=== PATIENT | female | born 1955 | race Hispanic/Latino ===

== ENCOUNTER 2022-08-20 13:59 | Inpatient (IN) | payer BC ==
[~2022-08-20] VITALS: Ht 165.1 cm; Wt 57.2 kg
[2022-08-20 15:57] LABS: BASOPHILS % (AUTO) 0.3 % (0.0-5.0); EOSINOPHILS % (AUTO) 0.8 % (0.0-8.0); HEMATOCRIT 29.6 % (36-48); LYMPHOCYTES % (AUTO) 23.5 % (21.0-51.0); MEAN CORPUSCULAR HEMOGLOBIN 30.1 pg (27.0-33.0); MEAN CORPUSCULAR HGB CONC 34.1 g/dL (32.0-36.0); MEAN CORPUSCULAR VOLUME 88.4 fL (79-99); MONOCYTES % (AUTO) 8.4 % (3.0-13.0); NEUTROPHILS % (AUTO) 62.2 % (40.0-77.0); PLATELET COUNT (AUTO) 263 K/uL (130-400); RED BLOOD CELL COUNT(AUTO) 3.35 MIL/uL (4.00-5.50); RED CELL DISTRIBUTION WIDTH 11.4 % (11.0-15.5); WHITE BLOOD COUNT (AUTO) 7.1 K/uL (4.8-10.8)
[2022-08-20] MEDS ORDERED: LORAZEPAM 1 MG TABLET PO ONE (16:00)
[2022-08-20 16:11] LABS: APPEARANCE,URINE CLEAR (CLEAR); BILIRUBIN,URINE NEGATIVE (NEGATIVE); COLOR,URINE LIGHT-YELLOW (YELLOW); GLUCOSE, URINE (UA) NEGATIVE (NEGATIVE); KETONES,URINE NEGATIVE (NEGATIVE); LEUKOCYTE ESTERASE ,URINE 25 Leu/uL (NEGATIVE); NITRATE,URINE NEGATIVE (NEGATIVE); OCCULT BLOOD,URINE NEGATIVE (NEGATIVE); PH,URINE 5.5 (5.0-8.0); PROTEIN,URINE 10 mg/dL (NEGATIVE); UROBILINOGEN,URINE 0.2 mg/dL (0.2-1.0)
[2022-08-20 16:13] LABS: ALBUMIN 3.8 g/dL (3.5-5.0); TOTAL PROTEIN, SERUM 7.7 g/dL (6.0-8.3)
[2022-08-20 16:15] LABS: POTASSIUM 2.9 mmol/L (3.5-5.1)
[2022-08-20 16:20] LABS: MUCUS,URINE RARE LPF (None Seen); SQUAMOUS EPITHELIAL CELL,UR RARE /HPF (0-2)
[2022-08-20] MEDS ORDERED: POTASSIUM BICARB/CIT AC 25 MEQ TABLET.EFF PO ONE (16:30)
[2022-08-20] MEDS ORDERED: 0.9%NACL 1000ML 1,000 ML IV ONE (16:30)
[2022-08-20] MEDS ORDERED: MORPHINE 4 MG SYG IVP ONE (17:30)
[2022-08-20] MEDS ORDERED: ONDANSETRON 4MG INJ IVP ONE (17:30)
[2022-08-20] MEDS ORDERED: ZOLPIDEM TARTRATE 5 MG TAB PO PRN (19:30)
[2022-08-20] MEDS ORDERED: ONDANSETRON 4MG INJ IV PRN (19:30)
[2022-08-20] MEDS: 0.9%NACL 1000ML 1,000 ML IV SCH (20:56)
[2022-08-20] MEDS ORDERED: LISI1TAB49 PO (22:22)
[2022-08-20] MEDS ORDERED: SIMV5TAB58 PO (22:22)
[2022-08-20] MEDS ORDERED: METF-444 PO (22:22)
[2022-08-20 22:49] VITALS: BP 170/86
[2022-08-20 22:51] VITALS: BP 129/71
[2022-08-21] VITALS: BP 129/71
[2022-08-21 04:00] VITALS: BP 97/59
[2022-08-21] MEDS: 0.9%NACL 1000ML 1,000 ML IV SCH ×2 (05:30→07:53)
[2022-08-21] MEDS: INSULIN HUMULIN R 100 UNIT/ML 3ML SQ SCH ×4 (05:33→20:30)
[2022-08-21 05:35] LABS: BASOPHILS % (AUTO) 0.3 % (0.0-5.0); HEMATOCRIT 26.2 % (36-48); LYMPHOCYTES % (AUTO) 32.1 % (21.0-51.0); MEAN CORPUSCULAR HEMOGLOBIN 29.6 pg (27.0-33.0); MEAN CORPUSCULAR HGB CONC 33.2 g/dL (32.0-36.0); MEAN CORPUSCULAR VOLUME 89.1 fL (79-99); MONOCYTES % (AUTO) 9.1 % (3.0-13.0); NEUTROPHILS % (AUTO) 52.9 % (40.0-77.0); PLATELET COUNT (AUTO) 233 K/uL (130-400); RED BLOOD CELL COUNT(AUTO) 2.94 MIL/uL (4.00-5.50); RED CELL DISTRIBUTION WIDTH 11.5 % (11.0-15.5); WHITE BLOOD COUNT (AUTO) 5.8 K/uL (4.8-10.8)
[2022-08-21 06:13] LABS: ALBUMIN 3.3 g/dL (3.5-5.0); CREATININE 2.1 mg/dL (0.5-1.5); POTASSIUM 3.3 mmol/L (3.5-5.1); TOTAL PROTEIN, SERUM 6.9 g/dL (6.0-8.3)
[2022-08-21 06:57] LABS: ERYTHROCYTE SEDIMENTATION RATE 85 MM/HR (0-30)
[2022-08-21] MEDS: FAMOTIDINE 20MG VIAL IV SCH (07:52)
[2022-08-21 08:00] VITALS: BP 116/65
[2022-08-21 12:00] VITALS: BP 112/64
[2022-08-21] MEDS ORDERED: KCL 20 MEQ ERTAB PO PRN (13:30)
[2022-08-21] MEDS ORDERED: PAMIDRONATE DISODIUM 90MG VIAL 60 MG in 0.9%NACL 1000ML 1,000 ML IV SCH (13:30)
[2022-08-21] MEDS: POTASSIUM CHLORIDE 10% ELIXIR 20 MEQ/15 ML UDCUP PO PRN ×2 (14:47→16:41)
[2022-08-21 16:00] VITALS: BP 125/68
[2022-08-21 19:00] VITALS: BP 122/66
[2022-08-21] MEDS: MORPHINE 2 MG SYG IV PRN (19:22)
[2022-08-22] VITALS (15 sets, daily range): BP systolic 99–164; BP diastolic 52–84
[2022-08-22] MEDS: 0.9%NACL 1000ML 1,000 ML IV SCH ×3 (01:30→19:40)
[2022-08-22 05:22] LABS: HEMATOCRIT 23.6 % (36-48); MEAN CORPUSCULAR HEMOGLOBIN 30.2 pg (27.0-33.0); MEAN CORPUSCULAR HGB CONC 33.9 g/dL (32.0-36.0); MEAN CORPUSCULAR VOLUME 89.1 fL (79-99); RED BLOOD CELL COUNT(AUTO) 2.65 MIL/uL (4.00-5.50); RED CELL DISTRIBUTION WIDTH 11.4 % (11.0-15.5); WHITE BLOOD COUNT (AUTO) 4.8 K/uL (4.8-10.8)
[2022-08-22 05:33] LABS: INR 1.06 (0.85-1.15); PROTHROMBIN TIME 11.5 SEC (9.6-11.6)
[2022-08-22] MEDS: INSULIN HUMULIN R 100 UNIT/ML 3ML SQ SCH ×4 (05:33→21:00)
[2022-08-22 05:34] LABS: PARTIAL THROMBOPLASTIN TIME 25.6 SEC (26.3-35.5)
[2022-08-22 05:41] LABS: ALBUMIN 2.9 g/dL (3.5-5.0); CREATININE 1.9 mg/dL (0.5-1.5); POTASSIUM 3.1 mmol/L (3.5-5.1); TOTAL PROTEIN, SERUM 6.1 g/dL (6.0-8.3)
[2022-08-22] MEDS: MORPHINE 2 MG SYG IV PRN ×2 (09:53→15:43)
[2022-08-22] MEDS: FAMOTIDINE 20MG VIAL IV SCH (10:37)
[2022-08-22] MEDS ORDERED: HYDROCHLOROTHIAZIDE 25 MG TABLET PO SCH (13:00)
[2022-08-22] MEDS: ACETAMINOPHEN 325 MG TAB PO PRN (17:14)
[2022-08-22] MEDS: POTASSIUM CHLORIDE 10% ELIXIR 20 MEQ/15 ML UDCUP PO PRN ×2 (19:40→22:06)
[2022-08-22] MEDS: SIMVASTATIN 10 MG TABLET PO SCH (22:04)
[2022-08-22] MEDS: LISINOPRIL 10 MG TABLET PO SCH (22:05)
[2022-08-22] MEDS: HYDROCHLOROTHIAZIDE 25 MG TABLET PO SCH (22:05)
[2022-08-23] MEDS: POTASSIUM CHLORIDE 10% ELIXIR 20 MEQ/15 ML UDCUP PO PRN ×2 (00:10→18:24)
[2022-08-23 04:00] VITALS: BP 124/67
[2022-08-23] MEDS: 0.9%NACL 1000ML 1,000 ML IV SCH ×2 (05:04→21:40)
[2022-08-23 05:36] LABS: MEAN CORPUSCULAR HEMOGLOBIN 29.6 pg (27.0-33.0); MEAN CORPUSCULAR HGB CONC 32.8 g/dL (32.0-36.0); MEAN CORPUSCULAR VOLUME 90.1 fL (79-99); PLATELET COUNT (AUTO) 123 K/uL (130-400); RED BLOOD CELL COUNT(AUTO) 2.13 MIL/uL (4.00-5.50); RED CELL DISTRIBUTION WIDTH 11.6 % (11.0-15.5)
[2022-08-23 05:41] LABS: HEMATOCRIT 19.2 % (36-48)
[2022-08-23 05:44] LABS: CREATININE 1.6 mg/dL (0.5-1.5); POTASSIUM 3.6 mmol/L (3.5-5.1)
[2022-08-23] MEDS: INSULIN HUMULIN R 100 UNIT/ML 3ML SQ SCH ×4 (06:07→21:00)
[2022-08-23 06:12] LABS: LYMPHOCYTES % (MANUAL) 16 % (22-44); MONOCYTES % (MANUAL) 12 % (2-9); SEGMENTED NEUTROPHILS % 72 % (40-70)
[2022-08-23 06:13] LABS: MAN.DIFF COMMENT-IMPRESSION MANUAL DIFFERENTIAL; PLATELET MORPHOLOGY COMMENT ADEQUATE
[2022-08-23 07:00] LABS: HEMATOCRIT 20.9 % (36-48)
[2022-08-23 07:55] VITALS: BP 113/59
[2022-08-23] MEDS: FAMOTIDINE 20MG VIAL IV SCH (07:59)
[2022-08-23] MEDS ORDERED: CLINDAMYCIN IVPB 600MG/50ML 50 ML IV SCH (09:30)
[2022-08-23 11:40] VITALS: BP 111/64
[2022-08-23] MEDS ORDERED: VANCOMYCIN PROTOCOL PER PHARMACY IV SCH (12:30)
[2022-08-23] MEDS ORDERED: VANCOMYCIN 1.25 GM/250 ML BAG 250 ML IV ONE (15:00)
[2022-08-23 15:45] VITALS: BP 149/77
[2022-08-23] MEDS: CEFTRIAXONE 1G VIAL IVP SCH (16:33)
[2022-08-23] MEDS: ACETAMINOPHEN 325 MG TAB PO PRN (18:33)
[2022-08-23 18:52] LABS: INFLUENZA TYPE A NEGATIVE FOR TYPE A (NEG); INFLUENZA TYPE B NEGATIVE FOR TYPE B (NEG)
[2022-08-23 20:31] VITALS: BP 120/70
[2022-08-23] MEDS: SIMVASTATIN 10 MG TABLET PO SCH (21:41)
[2022-08-23] MEDS: HYDROCHLOROTHIAZIDE 25 MG TABLET PO SCH (21:41)
[2022-08-23] MEDS: LISINOPRIL 10 MG TABLET PO SCH (21:41)
[2022-08-24 00:28] VITALS: BP 112/64
[2022-08-24] MEDS: 0.9%NACL 1000ML 1,000 ML IV SCH (03:30)
[2022-08-24] MEDS: ACETAMINOPHEN 325 MG TAB PO PRN ×2 (03:47→11:16)
[2022-08-24 04:35] VITALS: BP 113/64
[2022-08-24 05:04] LABS: HEMATOCRIT 24.2 % (36-48); MEAN CORPUSCULAR HEMOGLOBIN 29.5 pg (27.0-33.0); MEAN CORPUSCULAR HGB CONC 33.5 g/dL (32.0-36.0); RED BLOOD CELL COUNT(AUTO) 2.75 MIL/uL (4.00-5.50); RED CELL DISTRIBUTION WIDTH 12.1 % (11.0-15.5)
[2022-08-24 05:17] LABS: ALBUMIN 2.5 g/dL (3.5-5.0); CREATININE 1.8 mg/dL (0.5-1.5); POTASSIUM 3.7 mmol/L (3.5-5.1); TOTAL PROTEIN, SERUM 5.6 g/dL (6.0-8.3)
[2022-08-24] MEDS: INSULIN HUMULIN R 100 UNIT/ML 3ML SQ SCH ×2 (06:55→11:30)
[2022-08-24 08:00] VITALS: BP 116/62
[2022-08-24] MEDS ORDERED: LEVO-70 PO (10:13)
[2022-08-24] MEDS ORDERED: LISI10TA24 PO (10:22)
[2022-08-24 12:00] VITALS: BP 109/59
[2022-08-24] MEDS: CEFTRIAXONE 1G VIAL IVP SCH (12:54)
[2022-08-24] MEDS ORDERED: VANCOMYCIN 500MG+NS 100ML 100 ML IV SCH (15:00)
== END 2022-08-24 17:05 | disposition home or self-care (01) | DRG 598 ==
LOC: EDH 13:59 → EDHIP 14:00 → 3BH 22:00
PROVIDERS: ADMIT Hospitalist; ATTEND Hospitalist
PROC: 0HBU3ZX Excision of Left Breast, Percutaneous Approach, Diagnostic (ICD-10-PCS; 2022-08-22)
PROC: 30233N1 Transfusion of Nonautologous Red Blood Cells into Peripheral Vein, Percutaneous Approach (ICD-10-PCS; principal; 2022-08-23)
DX: C50.912 Malignant neoplasm of unspecified site of left female breast (principal); C79.51 Secondary malignant neoplasm of bone; N17.9 Acute kidney failure, unspecified; Z20.822 Contact with and (suspected) exposure to COVID-19; M54.50 Low back pain, unspecified; E83.52 Hypercalcemia; E87.6 Hypokalemia; D64.9 Anemia, unspecified; E11.22 Type 2 diabetes mellitus with diabetic chronic kidney disease; N18.9 Chronic kidney disease, unspecified; Z79.899 Other long term (current) drug therapy
CPT/HCPCS: 19083; 36415; 36430; 74176; 76641; 80048; 80053; 81001; 82310; 82948; 84145; 85014; 85018; 85025; 85027; 85610; 85651; 85730; 86140; 86300; 86304; 86316; 86850; 86900; 86901; 86923; 87040; 87088; 87426; 87804; G0378; J0696; J2270; J2405; J2430; J3490; J7030; P9016

== ENCOUNTER 2023-05-04 15:00 | Inpatient (IN) | payer MEDICARE, OTHER ==
[~2023-05-04 15:00] MED LIST: HYDR-4377 PO; LISI1TAB49 PO; METF-444 PO; METO10TA41 PO; SIMV5TAB58 PO
[2023-05-04] MEDS ORDERED: MORPHINE 2 MG SYG ONE (18:26)
[2023-05-04] MEDS ORDERED: MORPHINE 2 MG SYG IVP PRN (19:00)
[2023-05-04] MEDS ORDERED: ONDANSETRON 4MG INJ IVP PRN (19:00)
[2023-05-04] MEDS ORDERED: BISACODYL 10 MG SUPP.RECT RC PRN (19:00)
[2023-05-04] MEDS ORDERED: ACETAMINOPHEN 650 MG SUPPOSITORY RC PRN (19:00)
[2023-05-04 20:01] VITALS: O2SAT 96
[2023-05-04] MEDS: MORPHINE 2 MG SYG IVP PRN (21:07)
[2023-05-04] MEDS: LORAZEPAM 2 MG/ML 1 ML VIAL IVP PRN (22:13)
[2023-05-05] MEDS: MORPHINE 2 MG SYG IVP PRN ×6 (01:59→21:54)
[2023-05-05] MEDS: LORAZEPAM 2 MG/ML 1 ML VIAL IVP PRN ×5 (02:41→21:55)
[2023-05-05 08:00] VITALS: BP 141/69; PULSE 123; RESP 20; O2SAT 100
[2023-05-05 19:45] VITALS: O2SAT 100
[2023-05-06] MEDS: MORPHINE 2 MG SYG IVP PRN ×6 (02:08→17:57)
[2023-05-06] MEDS: LORAZEPAM 2 MG/ML 1 ML VIAL IVP PRN ×4 (02:08→17:58)
[2023-05-06 07:19] VITALS: PULSE 125; RESP 20
[2023-05-06 08:00] VITALS: O2SAT 100
[2023-05-06 11:00] VITALS: BP 113/64; PULSE 121; RESP 22
[2023-05-06 20:05] VITALS: BP 127/77; PULSE 119; RESP 15
[2023-05-06 20:10] VITALS: PULSE 113; RESP 16
[2023-05-06 20:20] VITALS: O2SAT 100
[2023-05-07] MEDS: LORAZEPAM 2 MG/ML 1 ML VIAL IVP PRN ×4 (00:08→21:48)
[2023-05-07] MEDS: MORPHINE 2 MG SYG IVP PRN ×8 (00:11→21:43)
[2023-05-07 06:39] VITALS: PULSE 120; RESP 21
[2023-05-07 07:30] VITALS: BP 127/68; PULSE 116; RESP 22
[2023-05-07] MEDS ORDERED: ACETAMINOPHEN 325 MG/10.15ML UDCUP PO PRN (14:30)
[2023-05-07 19:35] VITALS: PULSE 111; RESP 16
[2023-05-07 19:51] VITALS: BP 139/74; PULSE 115; RESP 22
[2023-05-07 20:40] VITALS: O2SAT 100
[2023-05-08] MEDS: LORAZEPAM 2 MG/ML 1 ML VIAL IVP PRN ×7 (01:04→22:34)
[2023-05-08] MEDS: MORPHINE 2 MG SYG IVP PRN ×4 (01:07→10:07)
[2023-05-08 06:37] VITALS: PULSE 100; RESP 16
[2023-05-08 07:30] VITALS: O2SAT 100
[2023-05-08 08:09] VITALS: BP 143/67; PULSE 129; RESP 16
[2023-05-08] MEDS: MORPHINE PCA 50MG/50ML NS IV SCH (11:43)
[2023-05-08 20:00] VITALS: BP 126/61; PULSE 120; RESP 18; O2SAT 100
[2023-05-08 20:10] VITALS: PULSE 100; RESP 16
[2023-05-09] MEDS: LORAZEPAM 2 MG/ML 1 ML VIAL IVP PRN ×3 (05:23→14:57)
[2023-05-09 07:30] VITALS: O2SAT 100
[2023-05-09 07:45] VITALS: PULSE 112; RESP 16
[2023-05-09 07:59] VITALS: BP 164/72; PULSE 122; RESP 14
[2023-05-09 19:45] VITALS: BP 121/58; PULSE 111; RESP 20
[2023-05-09 19:55] VITALS: PULSE 110; RESP 20
[2023-05-09 20:00] VITALS: O2SAT 100
[2023-05-10] MEDS: LORAZEPAM 2 MG/ML 1 ML VIAL IVP PRN ×3 (00:13→16:32)
[2023-05-10] MEDS: MORPHINE PCA 50MG/50ML NS IV SCH (03:52)
[2023-05-10 08:01] VITALS: O2SAT 100
[2023-05-10 08:57] VITALS: PULSE 148; RESP 20
[2023-05-10 12:00] VITALS: BP 115/58; PULSE 140; RESP 30
[2023-05-10 20:05] VITALS: O2SAT 91
[2023-05-10 20:27] VITALS: BP 98/59; PULSE 57; RESP 19
[2023-05-11] MEDS: LORAZEPAM 2 MG/ML 1 ML VIAL IVP PRN ×4 (01:57→22:13)
[2023-05-11 07:50] VITALS: O2SAT 91
[2023-05-11 12:32] VITALS: BP 132/62; PULSE 133; RESP 30
[2023-05-11 20:13] VITALS: O2SAT 99
[2023-05-11 20:58] VITALS: BP 111/55; PULSE 129; RESP 20
[2023-05-12] MEDS: LORAZEPAM 2 MG/ML 1 ML VIAL IVP PRN ×4 (01:16→10:21)
[2023-05-12 07:24] VITALS: O2SAT 99
[2023-05-12 08:38] VITALS: BP 127/62; PULSE 133; RESP 20
[2023-05-12] MEDS: MORPHINE 2 MG SYG IVP SCH ×2 (09:06→10:21)
[2023-05-12] MEDS: MORPHINE PCA 50MG/50ML NS IV SCH ×2 (10:54→10:55)
[2023-05-12] MEDS: LORAZEPAM 2 MG/ML 1 ML VIAL IVP SCH ×6 (13:15→23:04)
[2023-05-12] MEDS ORDERED: MORPHINE PCA 50MG/50ML 50 ML IV PRN (13:30)
[2023-05-12] MEDS ORDERED: NALOXONE HCL 0.4 MG/1 ML ML IVP PRN (13:30)
[2023-05-12 19:35] VITALS: O2SAT 90
[2023-05-12 20:12] VITALS: BP 116/64; PULSE 137; RESP 17
[2023-05-12 20:26] VITALS: O2SAT 89
[2023-05-13] MEDS: LORAZEPAM 2 MG/ML 1 ML VIAL IVP SCH ×12 (01:01→23:59)
[2023-05-13 08:00] VITALS: BP 105/55; PULSE 130; RESP 26; O2SAT 89
[2023-05-13 22:35] VITALS: O2SAT 89
[2023-05-14] VITALS: BP 79/40; PULSE 117; RESP 21
[2023-05-14] MEDS: LORAZEPAM 2 MG/ML 1 ML VIAL IVP SCH ×6 (02:10→20:28)
[2023-05-14 07:59] VITALS: BP 86/38; PULSE 121; RESP 20
[2023-05-14 08:00] VITALS: O2SAT 91
== END 2023-05-14 23:30 | DRG 597 ==
LOC: 3AH 15:00
PROVIDERS: ADMIT Internal Medicine Hematology & Oncology; ATTEND Internal Medicine Hematology & Oncology
DX: C50.919 Malignant neoplasm of unspecified site of unspecified female breast (principal); J96.01 Acute respiratory failure with hypoxia; D61.818 Other pancytopenia; R64 Cachexia; D70.1 Agranulocytosis secondary to cancer chemotherapy; E21.2 Other hyperparathyroidism; R62.7 Adult failure to thrive; E11.9 Type 2 diabetes mellitus without complications; I10 Essential (primary) hypertension; Z51.5 Encounter for palliative care; Z66 Do not resuscitate; Z82.49 Family history of ischemic heart disease and other diseases of the circulatory system
CPT/HCPCS: G0378; J2060; J2270; J2405